=== PATIENT | female | born 1930 | race Caucasian/White ===

== ENCOUNTER 2018-12-05 17:08 | Inpatient (IN) | payer OTHER, MEDICARE ==
[~2018-12-05] VITALS: Ht 147.3 cm; Wt 54.4 kg
[2018-12-05 17:14] VITALS: Ht 147.3 cm; Wt 54.4 kg
--- NOTE | 2018-12-05 17:32 | NUR ---
PER PT SON SHE WAS EATING JELLO THIS MORING AND BEGAN TO HAVE A PRESSURE HEADACHE. PER SON PT STARTED TO FEEL "REALLY COLD AND SHAKING". PT STS SHE DID VOMIT X1 AT 1530, PT DENIES ANY NAUSEA. PT STS THAT SHE NO LONGER IS FEELING "SICK, BUT MY HEAD IS HURTING ME". PT DENIES ANY ABDOMINAL PAIN. NO VOMITING AT THIS TIME. PT DENEIS ANY NUMBNESS. PT IS ALERT AND ORIENTED, SPEAKING IN CLEAR AND FULL SENTENCES. VSS. RESP E/U. NO DISTRESS NOTED. WILL CONTINUE TO MONITOR.
--- NOTE | 2018-12-05 17:39 | NUR ---
LAB AT BEDSIDE.
[2018-12-05 18:07] LABS: PLATELET COUNT 221 x10^3mcL (130-400)
[2018-12-05 18:09] LABS: RED CELL DISTRIBUTION WIDTH 14.7 % (11.5-14.5)
[2018-12-05 18:22] LABS: CALCIUM 9.5 mg/dL (8.5-10.1); CARBON DIOXIDE 25.5 mmol/L (21-32); CHLORIDE SERUM 103 mmol/L (98-107); GLUCOSE SERUM 107 mg/dL (74-106); POTASSIUM SERUM 3.6 mmol/L (3.5-5.1); SODIUM SERUM 140 mmol/L (136-145)
[2018-12-05 18:27] LABS: ALBUMIN 3.7 g/dL (3.4-5.0); ALKALINE PHOSPHATASE 101 U/L (46-116); ALT/SGPT 18 U/L (14-59); AST/SGOT 15 U/L (15-37); BILIRUBIN TOTAL 0.51 mg/dL (0.20-1.00); LIPASE 120 IU/L (73-393); TOTAL PROTEIN, SERUM 7.7 g/dL (6.4-8.2)
[2018-12-05 18:57] LABS: BAND NEUTROPHIL 9 % (0-10); METAMYELOCTE 2 % (0-2); MONOCYTE 5 % (0-7); SEGMENTED NEUTROPHILS 70 % (37-75)
[2018-12-05 18:59] LABS: PLATELET MORPHOLOGY PLATELETS NORMAL; rbc morphology (normal/abnorm) NORMAL (NORMAL)
[2018-12-05 19:07] LABS: UA SPECIFIC GRAVITY <=1.005 (1.005-1.035); microscopic required? YES; urine erythrocyte NEGATIVE (NEGATIVE)
--- NOTE | 2018-12-05 19:14 | NUR ---
REPORT RECEIVED FROM FABIAN GIBSON. PT'S CARE ASSUMED AT THIS TIME. PT BEING ADMITTED.
--- NOTE | 2018-12-05 19:16 | NUR ---
PT SLEEPING COMFORTABLY IN BED. EASILY AROUSABLE BY VERBAL STIMULI. BREATHING EASY AND UNLABORED, VSS, NO OBVIOUS DISTRESS AT THIS TIME. WILL CONTINUE TO MONITOR.
--- NOTE | 2018-12-05 19:23 | NUR ---
REPORT GIVEN TO FLORENCIO GIBSON TO ASSUME CARE OF PT.
[2018-12-05] MEDS ORDERED: GOOD SENSE OMEP20 MG PO (20:00)
--- NOTE | 2018-12-05 20:08 | NUR ---
PT ADMITTED (MED SURG, ROOM#[id number]) - REPORT CALLED TO LEEANN GIBSON. OPPORTUNITY GIVEN TO ASK QUESTIONS. PT'S CARE COMPLETED BY THIS RN AT THIS TIME.
--- NOTE | 2018-12-05 20:10 | NUR ---
PT TRANSPORTED TO FLOOR BY CINDY GIL, AT THIS TIME.
--- NOTE | 2018-12-05 20:23 | NUR ---
RECEIVED PT [employer]IA [employer] FROM [employer], ACCOMPANIED BY TRANSPORTER AND PT'S SON, CHICHO YA WHO ACTED ROLL ICER MACHINE FOR HER. PT A/A/O X 4, CALM, COOPERATIVE; C/O INTERMITTENT THROBBING H/A 3/10, EXACERBATED BY NOTHING, MODERATELY RELIEVED BY PAIN MEDICATION. PT INITIALLY CAME IN M/S PT, NOTED HER HEART RATE TO FLUCTUATE; DR CAMPOVERDE NOTIFIED, AND CHANGED HER STATUS TO TELE; ON TELE # 7, HR 78, SR W/ PAC'S, DENIES CHEST PAIN OR DISCOMFORT AT THIS TIME. LUNGS CTAB, CHEST RISING EVENLY, R/A, 97%, NO ACUTE RESPIRATORY DISTRESS NOTED. VOIDS FREELY, NO DYSURIA. GENERALIZED WEAKNESS, ABLE TO AMBULATE W/ ASSISTANCE AND FWW (@ BEDSIDE). IV SITE LAC 20G, CDI. ORIENTED PT AND SON TO ROOM, BED CONTROLS, CALL LIGHT SYSTEM. SIDE RAILS UP X 2, BED IN LOW POSITION. WILL ENDORSE TO ARTHUR BRADSHAW.
[2018-12-05 21:28] VITALS: BP 135/73
[2018-12-05 22:00] VITALS: BP 123/57
--- NOTE | 2018-12-06 02:10 | NUR ---
PT RESTING WITH EYES CLOSED. BREATHING EVEN AND UNLABORED ON ROOM AIR. NO FACIAL GRIMACING. NO DISTRESS NOTED. SAFETY MEASURES IN PLACE. BED IN LOWEST POSITION SIDE RAILS UP X2. CALL LIGHT WITHIN EASY REACH. WILL CONTINUE TO MONITOR.
--- NOTE | 2018-12-06 03:01 | NUR ---
PT C/O HEADACHE 08/08. MEDICATED WITH TYLENOL.
--- NOTE | 2018-12-06 05:07 | NUR ---
PT SLEPT AT LONG INTERVALS DURING SHIFT. AROUSABLE WITH VERBAL STIMULI. NO SOB ON ROOM AIR. BREATHING EVEN AND UNLABORED. NO C/O N/V/ABD PAIN. AMBULATES TO THE BATHROOM WITH WALKER AND ASSIST. SAFETY MEASURES MAINTAINED. ALL NEEDS ATTENDED TO. CALL LIGHT WITHIN REACH. WILL CONTINUE TO MONITOR AND ENDORSE CONTINUITY OF CARE TO DAY SHIFT.
[2018-12-06 05:23] VITALS: BP 116/51
[2018-12-06 06:40] LABS: BASOPHIL % 0.1 % (0-2); PLATELET COUNT 189 x10^3mcL (130-400)
[2018-12-06 06:41] LABS: RED CELL DISTRIBUTION WIDTH 14.6 % (11.5-14.5)
[2018-12-06 06:54] LABS: CALCIUM 8.8 mg/dL (8.5-10.1); CHLORIDE SERUM 107 mmol/L (98-107); CREATININE SERUM 0.7 mg/dL (0.6-1.0); GLUCOSE SERUM 94 mg/dL (74-106); MAGNESIUM 1.8 mg/dL (1.8-2.4); PHOSPHOROUS 2.8 mg/dL (2.5-4.9); POTASSIUM SERUM 3.7 mmol/L (3.5-5.1); SODIUM SERUM 142 mmol/L (136-145)
--- NOTE | 2018-12-06 07:20 | NUR ---
RECEIVED PT. IN BED A/A/O X3. NO SOB, NO N/V NOTED. PT. DENIES ANY PAIN AT THIS TIME. IV SITE NOTED TO L AC. SCD TO BLE MAINTAINED. BED IN LOW POS., CALL LIGHT WITHIN REACH. SIDE RAILS UP X3.
[2018-12-06 09:23] VITALS: BP 128/50
--- NOTE | 2018-12-06 12:20 | NUR ---
PT. IS MED-SURG STATUS NOW PER PHYSICIAN'S ORDER. TELE. MONITOR #7 REMOVED AND RETURNED TO TELE. MONITOR STATION.
[2018-12-06 12:43] VITALS: BP 127/68
[2018-12-06 18:12] VITALS: BP 128/65
--- NOTE | 2018-12-06 19:06 | NUR ---
REMAINS IN STABLE CONDITION AT THIS TIME. WILL CONTINUE TO MONITOR.
--- NOTE | 2018-12-06 19:40 | NUR ---
RECEIVED REPORT FROM DAY SHIFT RN. PT RESTING IN BED WITH EYES CLOSED. AROUSABLE WITH VERBAL STIMULI. ORIENTED X4. NO SOB ON ROOM AIR. NO C/O PAIN AT THIS TIME. NO DISTRESS NOTED. IV TO LAC, INTACT. SAFETY MEASURES IN PLACE. BED IN LOWEST POSITION. SIDE RAILS UP X2. INSTRUCTED PT TO USE THE CALL LIGHT FOR ASSISTANCE. CALL LIGHT WITHIN REACH. FWW AT BEDSIDE.
[2018-12-06 21:41] VITALS: BP 130/63
--- NOTE | 2018-12-07 02:15 | NUR ---
PT RESTING WITH EYES CLOSED. BREATHING EVEN AND UNLABORED. NO FACIAL GRIMACING. NO DISTRESS NOTED. CALL LIGHT WITHIN REACH. WILL CONTINUE TO MONITOR.
[2018-12-07 05:31] VITALS: BP 155/75
[2018-12-07 06:00] VITALS: BP 145/64
[2018-12-07 06:31] LABS: BASOPHIL % 0.6 % (0-2); PLATELET COUNT 190 x10^3mcL (130-400)
--- NOTE | 2018-12-07 06:48 | NUR ---
PT RESTED AT LONG INTERVALS THROUGHOUT SHIFT. NO SOB ON ROOM AIR. NO C/O PAIN. NO DISTRESS NOTED. SAFETY MEASURES MAINTAINED. BED IN LOWEST POSITION. SIDE RAILS UP X2. CALL LIGHT WITHIN REACH. FWW AT BEDSIDE. WILL ENDORSE CONTINUITY OF CARE TO DAY SHIFT RN.
--- NOTE | 2018-12-07 06:51 | NUR ---
PT SLEPT WELL THROUGHOUT SHIFT. NO SOB ON ROOM AIR. NO C/O PAIN. TYLENOL GIVEN FOR FEVER AND COOLING MEASURES IN PLACE. INSTRUCTED PT TO USE THE CALL LIGHT FOR BATHROOM ASSISTANCE BUT PT HAD EPISODES OF INCONTINENCE. SAFETY MEASURES MAINTAINED. ALL NEEDS ATTENDED TO. ANKLE MONITOR TO RLE. BATTERY REPLACED. BACKUP BATTERY CHARGING AT BEDSIDE. CALL LIGHT WITHIN REACH. WILL ENDORSE CONTINUITY OF CARE TO ONCOMING RN.
[2018-12-07 07:07] LABS: RED CELL DISTRIBUTION WIDTH 14.8 % (11.5-14.5)
[2018-12-07 07:25] LABS: CALCIUM 9.6 mg/dL (8.5-10.1); CARBON DIOXIDE 24.6 mmol/L (21-32); CHLORIDE SERUM 108 mmol/L (98-107); CREATININE SERUM 0.7 mg/dL (0.6-1.0); GLUCOSE SERUM 94 mg/dL (74-106); PHOSPHOROUS 2.8 mg/dL (2.5-4.9); POTASSIUM SERUM 3.6 mmol/L (3.5-5.1); SODIUM SERUM 144 mmol/L (136-145)
--- NOTE | 2018-12-07 07:45 | NUR ---
ALERT AND ORIENTED. SITTING UP AT EDGE OF BED FOR BREAKFAST. BREATHING FREELY ON RA. BRP W SUPERVISION ONLY. SL TO LEFT AC. BILAT KNEES SWOLLEN, CHRONIC KNEE PAIN. WILL ADMIN TYLENOL. GOOD APPETITE. CALL LIGHT WITHIN REACH.
[2018-12-07 08:31] VITALS: BP 148/69
--- NOTE | 2018-12-07 09:07 | NUR ---
BACK FROM CT SCAN HEAD.
[2018-12-07] MEDS ORDERED: BACTRIM DS1 TAB PO (10:29)
[2018-12-07 11:08] VITALS: BP 148/69
--- NOTE | 2018-12-07 13:08 | NUR ---
PT GOING HOME. DC'D NO TELE. IV DC'D INTACT. ALL DC INSTRUCTIONS REVIEWED WITH AND SIGNED BY PT GRAND DAUGHTER BERNIE. F/U JIMENEZ GIVEN GOT 12/11/18 W PCP. PRESCRIPTION GIVEN FOR BACTRIM.
--- NOTE | 2018-12-07 16:03 | NUR ---
PHYSICAL THERAPY DAILY NOTES CO-SIGN All documentation done by the [employer] for 12/07/18 has been reviewed. I agree with the documentation. Reviewed/Co-Signed by: Cassandra Valera PT Documentation Done by:OMARI SAINI PTA
== END 2018-12-07 13:38 | disposition home or self-care (01) | DRG 720 ==
LOC: ED 17:08 → DU 19:08 → MU 19:08 → DU 21:16 → MU 12-06 12:19
PROVIDERS: Emergency Medicine; ADMIT Internal Medicine
DX: A41.9 Sepsis, unspecified organism (principal); N39.0 Urinary tract infection, site not specified; I10 Essential (primary) hypertension; Z79.899 Other long term (current) drug therapy
CPT/HCPCS: 97110-GP; 97116-GP; G0378; J0696; J7030; J7040; J7060; Q0092